=== PATIENT | male | born 1960 | race Caucasian/White ===

== ENCOUNTER 2017-07-07 10:12 | Emergency (ER) | payer BC, OTHER ==
[2017-07-07] MEDS ORDERED: Ketorolac Tromethamine 30 MG/ML VIAL IVP SCH (10:45)
[2017-07-07] MEDS ORDERED: methylPREDNISolone Sod Succ/PF 125 MG/2 ML VIAL IVP SCH (10:45)
[2017-07-07] MEDS ORDERED: AMOXicillin 250 MG CAP PO SCH (10:45)
[2017-07-07] MEDS ORDERED: Benzonatate 100 MG CAP PO SCH (10:45)
--- NOTE | 2017-07-07 10:45 | RAD ---
PORTABLE CHEST ONE VIEW: Date: 07-07-17 Time: 10:17 a.m. History: Dyspnea. FINDINGS: Comparison is made with exam of 03-26-12. Heart size is normal. The lungs are expanded without focal areas of consolidation, pneumothorax, or p leural effusions. IMPRESSION: No radiographic evidence of acute cardiopulmonary process. POS: [facility]
[2017-07-07] MEDS ORDERED: AMOXicillin 250 MG CAP ONE (10:48)
[2017-07-07] MEDS ORDERED: Benzonatate 100 MG CAP ONE (10:48)
[2017-07-07 10:50] LABS: #Basophils 0.1 thou/uL (0.0-0.2); #Eosinphils 0.3 thou/uL (0.0-0.7); #Lymphocytes 1.6 thou/uL (1.20-3.40); #Monocytes 0.9 thou/uL (0.11-0.59); #Neutrophils 7.5 thou/uL (1.40-6.50); %Basophils 0.8 % (0.0-1.0); %Eosinophils 2.9 % (0.0-10.0); %Lymphocytes 15.5 % (21.0-51.0); %Neutrophils 71.8 % (42.0-75.0); Hemoglobin 14.2 g/dL (14.0-18.0); Mean Corpuscular HGB CONC 34.1 g/dL (32.0-36.0); Mean Platelet Volume 7.2 fL (7.4-10.4); Platelet Count 247 thou/uL (130-400); RBC Distribution Width 11.2 % (11.5-14.5); Red Blood Cell (RBC) Count 4.74 mill/uL (4.70-6.10); White Blood Cell (WBC) Count 10.5 thou/uL (4.8-10.8)
[2017-07-07] MEDS ORDERED: Lorazepam 2 MG/ML VIAL SLOW IVP SCH (11:00)
[2017-07-07] MEDS ORDERED: Ondansetron HCl/PF 4 MG/2 ML Vial SLOW IVP SCH (11:00)
[2017-07-07] MEDS ORDERED: Dexamethasone 10 MG/ML VIAL SLOW IVP SCH (11:00)
[2017-07-07 11:11] LABS: ALT (SGPT) 25 U/L (8-55); AST (SGOT) 20 U/L (5-34); Albumin 4.4 g/dL (3.5-5.0); Alkaline Phosphatase 80 U/L (40-150); Anion Gap 20 mmol/L (10-20); BUN (Urea Nitrogen) 14 mg/dL (8.4-25.7); Calc. Creatinine Clearance 0 mL/min (70-130); Calcium 9.6 mg/dL (7.8-10.44); Carbon Dioxide 20 mmol/L (22-29); Chloride 103 mmol/L (98-107); Estimated GFR-MDRD 60; Globulin 2.9 g/dL (2.4-3.5); Glucose 142 mg/dL (70-105); Potassium 3.5 mmol/L (3.5-5.1); Protein, Total 7.3 g/dL (6.0-8.3); Sodium 139 mmol/L (136-145)
== END 2017-07-07 12:55 | disposition home or self-care (01) ==
LOC: MADERS 10:12
DX: J20.9 Acute bronchitis, unspecified (principal)
CPT/HCPCS: 36415; 71045; 80053; 83880; 85025; 87040; 87081; 87430; J7620

== ENCOUNTER 2017-12-26 16:36 | Emergency (ER) | payer BC ==
[2017-12-26] MEDS ORDERED: HYDROcodone/Acetaminophen 10/325 mg Tablet ONE (17:12)
[2017-12-26] MEDS ORDERED: Triple Antibiotic Oint 1 GM Packet ONE (17:13)
[2017-12-26] MEDS ORDERED: Cephalexin 500 MG CAP ONE (17:13)
[2017-12-26] MEDS ORDERED: Naproxen 500 MG TAB ONE (17:13)
== END 2017-12-26 17:50 | disposition home or self-care (01) ==
LOC: MADERS 16:36
DX: T22.111A Burn of first degree of right forearm, initial encounter (principal); T24.112A Burn of first degree of left thigh, initial encounter; T31.11 Burns involving 10-19% of body surface with 10-19% third degree burns; X11.8XXA Contact with other hot tap-water, initial encounter
CPT/HCPCS: 99283

== ENCOUNTER 2025-03-20 09:12 | Emergency (ER) | payer OTHER, SELFPAY ==
[2025-03-20] MEDS ORDERED: HYDROcodone/Acetaminophen 5/325 mg Tablet ONE (09:53)
[2025-03-20] MEDS ORDERED: Ibuprofen 800 MG TAB ONE (09:53)
[2025-03-20] MEDS ORDERED: Cyclobenzaprine 10 MG TAB ONE (09:53)
== END 2025-03-20 10:41 | disposition home or self-care (01) ==
LOC: MADERS 09:12
DX: S43.402A Unspecified sprain of left shoulder joint, initial encounter (principal); I10 Essential (primary) hypertension; Z87.891 Personal history of nicotine dependence; W17.89XA Other fall from one level to another, initial encounter
CPT/HCPCS: 99283